=== PATIENT | female | born 1935 | race Caucasian/White ===

== ENCOUNTER → 2017-04-20 | Outpatient (CLI) | payer MEDICARE, BC ==
[~2017-04-20] MED LIST: ACETAMINOPHEN650 M3 PO; ACULAR LS5 ML OP; ACULAR10 ML; ALPHAGAN P10 ML; ALTACHLORE OD; AMBIEN PO; ANEXSIA 5/325 M1 TA1 PO; ANTIBIOTIC OINT28 GM TOP; CALCIUM 600 + D1 TAB PO; CARVEDILOL3.125 MG PO; CELEBREX; CELEBREX PO; CELEBREX100 MG PO; COMPAZINE10 M3 PO; COREG3.125 MG PO; COSOPT EYE DROPS5 ML; D3-5050000 UNIT PO; DEXAMETHASONE2 MG PO; ESCITALOPRAM OX10 MG PO; EVISTA60 M1 DOB; EVISTA60 M1 PO; EVISTA60 MG; FOLIC ACID PO; FOSAMAX70 MG PO; FUROSEMIDE40 MG PO; HCTZ; HYDROCHLOROTH12.5 M1 PO; HYDROCODONE/APA1 T16 PO; K-DUR20 ME2 PO; KEFLEX500 MG PO; KETOROLAC TROMET5 ML OS; LEXAPRO5 MG PO; LORAZEPAM1 MG PO; LORTAB 10-5001 EACH PO; LORTAB 5/500 TA1 TA1 PO; MAG-OX 400400 M1 PO; MAGNESIUM400 M1 PO; MAGNESIUM400 MG PO; MELATONIN5 M1 PO; METHOTREXATE2.5 MG; METHOTREXATE2.5 MG PO; MICROZIDE12.5 M1 PO; MIRALAX17 GM PO; MONTELUKAST SOD10 MG PO; MURO; MURO OU; MURO-12815 ML OP; MURO-1283.5 G1 OP; NEXIUM PO; OMEPRAZOLE20 M1 PO; OMNICAP TABLET0.4 MG PO; ONDANSETRON ODT4 MG PO; OXYCODONE HCL5 MG PO; OYSTER SHELL C1 EAC4 PO; OYSTER SHELL C500 MG PO; PERCOCET5/325 PO; PLAQUENIL200 MG; PLAQUENIL200 MG PO; POSTURE600 MG; PREDNISOLONE SO10 ML OS; PRILOSEC2.5 MG; PRILOSEC20 M1 PO; PROTONIX PO; RALOXIFENE HCL60 MG PO; REVLIMID15 MG PO; SODIUM CHLORID3.5 GM OD; SODIUM CHLORIDE OD; SULFATRIM 800-120 ML PO; SYSTANE GEL EYE10 ML OP; SYSTANE ULTRA 010 ML OD; TEMAZEPAM30 MG PO; TRAMADOL HCL50 M1 PO; TRAMADOL HCL50 M2 PO; TYLENOL #3 PO; VESICARE PO; VITAL-D RX TABL1 TAB; VITAMIN D 4001 UDTAB; VITAMIN D250000 UNIT PO; VITAMIN D5000 UNIT PO; VITAMIN D50000 UNIT PO; XALATAN; [UNRECOGNIZED DRUG - SUPPLY]
--- NOTE | ~2017-04-20 | NM8 ---
[facility] A Service of [facility] & [facility] RADIOLOGY TEXT RESULTS PATIENT: BALTAZAR MAJANO LOCATION: [facility] : 37 UNIT #: [id number] AGE: [address]: Reza Fuentes MD SEX: F ORDER DR: [id number] [facility] [address] [facility] [place], [place] [address] [id number] O MR#: [id number] #: [id number] NAME: BALTAZAR MAJANO : 1935 SEX: F STUDY DATE/TIME: 04/20/2017 13:37 UNIT: [facility] ROOM: STUDY DESCRIPTION: RI Bone or Joint Whole Body Attending Physician: Reza Fuentes M.D. Referring Physician: Reza Fuentes M.D. Ordering Physician: Reza Fuentes M.D. Primary Care Physician: Lesia Reza M.D. MEDICAL IMAGING REPORT This report is preliminary unless electronic signature is present EXAM Whole-body bone scan DATE 04/20/2017 HISTORY Monoclonal gammopathy. Pain from the lower back into the right hip and knee since 2012. 3 prior spinal surgeries, last approximately 3-5 years ago. COMPARISON Whole-body bone scan 05/24/2016. CT angiography of the abdomen 07/12/2016. MRI lumbar spine 01/09/2016. FINDINGS Following the intravenous administration of 23.9 mCi technetium 99m MDP, anterior posterior whole body planar images were acquired. Intense radiopharmaceutical uptake is demonstrated within the [id number] thoracic spine at approximately the T9-10 vertebral levels, most likely representing a site of chronic compression deformity and kyphoplasty at T10 and anterior wedging deformity at T9. Moderate uptake in the lumbar spine eccentrically toward the right near the L1 level, thought to correspond to the patient's known metastatic lesion at that location. Mild uptake within upper lumbar vertebral body to the left of midline, thought to correspond to the L2 vertebral body, it may be the result of degenerative endplate changes and facet arthropathy at that level, but appears more intense than on the 05/24/2016 exam. Uptake within lower lumbar spine to the right of midline has a similar appearance to previous examination, without abnormal CT correlate on previous exam. 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 [facility] A Service of [facility] RADIOLOGY TEXT RESULTS PATIENT: BALTAZAR MAJANO LOCATION: [facility] : 37 UNIT #: [id number] AGE: [address]: Reza Fuentes MD SEX: F ORDER DR: Degenerative pattern of uptake within the bilateral shoulders, bilateral wrists, and bilateral knees, right greater than left. There is focal increased uptake within the left acetabulum medially which appears approximately stable from the prior exam. IMPRESSION 1. Slight increased radiopharmaceutical uptake is thought to be present within an upper lumbar body to the left of midline, thought to represent L2, and underlying disease progression at that location cannot be excluded. The uptake within the right lower lumbar spine near the L4-5 level is stable, without definite recent CT correlate. 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 2. Intense uptake at T9-10, thought to correspond to the patient's known foci of compression fractures, T10 osteolysis and vertebroplasty, unchanged. 3. Degenerative pattern of uptake within bilateral shoulders, wrist, and knees. 4. Intermediate uptake within the medial left hip, thought to be stable compared to prior examination. It is unclear whether this represents degenerative change in the left hip versus metastatic disease. Dictated by... Stacy Loaiza M.D. THIS IS AN ELECTRONICALLY VERIFIED REPORT Stacy Loaiza M.D. at 04/22/2017 8:[address] [facility]/peri TD: 04/21/2017 21:28 JOB #: [id number] MEDICAL IMAGING REPORT Page 1 of 1 COPY
== END | disposition home or self-care (01) ==
LOC: CNUC 09:57
DX: D47.2 Monoclonal gammopathy (principal); R68.89 Other general symptoms and signs; R94.8 Abnormal results of function studies of other organs and systems
CPT/HCPCS: 78306; A9503